=== PATIENT | female | born 1945 | race Two or more races ===

== ENCOUNTER 2022-08-16 10:36 | Emergency (ER) | payer OTHER ==
[~2022-08-16] VITALS: Ht 157.5 cm; Wt 72.6 kg
[2022-08-16] MEDS ORDERED: GLUMETZA500 MG PO (11:34)
[2022-08-16] MEDS ORDERED: GLIMEPIRIDE1 MG (11:34)
== END 2022-08-16 23:24 | disposition home or self-care (01) ==
LOC: ER 10:36
DX: R73.9 Hyperglycemia, unspecified (principal); Z20.822 Contact with and (suspected) exposure to COVID-19